=== PATIENT | female | born 1990 | race Caucasian/White ===

== ENCOUNTER 2018-06-05 15:31 | Emergency (ER) | payer MEDICAID ==
[~2018-06-05] VITALS: Ht 165.1 cm; Wt 104.3 kg
[2018-06-05 15:45] VITALS: BP 137/88
[2018-06-05] MEDS ORDERED: KETOROLAC TROMETH 60MG/2ML VIAL IM ONE (17:15)
== END 2018-06-05 17:59 | disposition home or self-care (01) ==
LOC: ER 15:31
DX: R51 Headache (principal); L03.811 Cellulitis of head [any part, except face]; J02.9 Acute pharyngitis, unspecified; F17.200 Nicotine dependence, unspecified, uncomplicated; F10.10 Alcohol abuse, uncomplicated; Z98.51 Tubal ligation status
CPT/HCPCS: 70450; 96372; 99284; J1885